=== PATIENT | male | born 1995 | race Caucasian/White ===

== ENCOUNTER → 2017-01-04 | Outpatient (CLI) | payer OTHER ==
[2017-01-04 13:46] LABS: ANION GAP 7 MEQ/L (8-16); BLOOD UREA NITROGEN 20 MG/DL (7-18); CALCIUM LEVEL 8.5 MG/DL (8.5-10.1); CARBON DIOXIDE LEVEL 30 MEQ/L (21-32); CHLORIDE LEVEL 102 MEQ/L (98-107); CREATININE FOR GFR 1.02 MG/DL (0.70-1.30); GLOMERULAR FILTRATION RATE > 60.0 (>60); GLUCOSE, FASTING 76 MG/DL (70-105); POTASSIUM SERUM 4.2 MEQ/L (3.5-5.1); SODIUM LEVEL 139 MEQ/L (136-145)
== END ==
LOC: M LAB 11:27
PROVIDERS: ATTEND Ophthalmology
DX: Z01.818 Encounter for other preprocedural examination (principal)

== ENCOUNTER → 2017-01-09 | Day surgery (SDC) | payer OTHER ==
--- NOTE | 2017-01-08 01:28 | HPE ---
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 This cyst has started getting larger. He is being admitted to have the caruncle cyst removed from the right eye under local anesthetic with sedation. PAST OCULAR HISTORY: Please see history of present illness. PAST MEDICAL HISTORY: Please see the report by Dr. Ramirez Chinchilla, primary care physician at [place]. Negative for significant injury, disease or surgery. MEDICATIONS: Please refer to the report by Dr. Chinchilla. ALLERGIES: No known drug allergies. FAMILY HISTORY: Noncontributory. SOCIAL HISTORY: Nonsmoker. EXAMINATION: Vision without correction: Right eye: 20/20, left eye: 20/20. Intraocular pressure by Goldmann tonometry: Both eyes: 15 mmHg. Pupils: Both eyes: Equal, round, regular and reactive to light, 4 mm. Extraocular eye movements: Both eyes: Full, orthophoric on cover testing. External examination: Right eye: Normal lids, lashes. White/yellow semi mobile cyst on caruncle, 4 mm in size. Vascular. Left eye: Normal lids, lashes, conjunctiva. Slit lamp examination: Cornea: Both eyes: Normal. Anterior chamber: Both eyes: Normal. Iris: Both eyes: Normal. Lens: Both eyes: Normal. Fundal examination through dilated pupils: Discs: Both eyes: Drusen. Macular : Both eyes: Normal. IMPRESSION: 1. Cyst of caruncle, conjunctiva right eye. 2. Optic discs drusen both eyes. PLAN: I discussed the findings with Mr. Ramirez. I recommended excision of the cyst under local anesthetic with sedation. The decision was made to perform this in the operating room as Mr. Ramirez was concerned about surgery near his eye. I discussed the procedure, benefit, expected outcomes, risks and alternatives to surgery. I mentioned that the risk of surgery includes, but is not limited to surgery is not guaranteed, bleeding, infection, inflammation, scarring, recurrence, injury to the globe, extraocular muscles or orbit causing impaired vision or eye movement. Mr. Ramirez elected to have the said surgery performed. I obtained an informed consent. I advised him to stop any aspirin type products and nonsteroidal anti-inflammatory medications 1 week preoperatively. [facility]
[~2017-01-09] VITALS: Ht 170.2 cm; Wt 77.1 kg
[~2017-01-09] MED LIST: BUPIVACAINE 0.75% 10 ML VIAL As Ordered ONE; CIPROFLOXACIN OPHTH 0.3% OINTMENT As Ordered ONE; LIDOCAINE 2% INJ 100 MG/5 ML SDV (FOR ANES.) As Ordered ONE; LIDOCAINE 2% MDV 20 ML VIAL As Ordered ONE; LIDOCAINE W/EPINEPHRINE 1% 20ML VIAL As Ordered ONE; LR 1,000 ML IV ONE; MIDAZOLAM INJ 2 MG/2 ML VIAL (J2250) As Ordered ONE; POVIDONE-IODINE 5% OPHTH PREP SOL 30ML As Ordered ONE; PROPARACAINE 0.5% OPHTH SOL 15ML OD SCH; PROPOFOL 200 MG/20 ML VIAL As Ordered ONE; SODIUM BICARBONATE 8.4% INJ 50MEQ 50 ML VIAL As Ordered ONE; TOBRADEX OPHTH OINT 3.5 GM As Ordered ONE; dexameTHASONE 4 MG/ML 1ML VIAL (J1100) IV ONE; fentaNYL 100 MCG/2 ML INJECTION (J3010) As Ordered ONE
--- NOTE | 2017-01-09 10:35 | RO ---
DATE OF SURGERY: 01/09/2017 ROOM: Operating room. PREOPERATIVE DIAGNOSIS: Epidermal inclusion cyst on the caruncle of the right eye, 4 mm. POSTOPERATIVE DIAGNOSIS: Epidermal inclusion cyst on the caruncle of the right eye, 4 mm. OPERATIVE PROCEDURE: Excision of epidermal inclusion cyst from the caruncle of the right eye. SURGEON: Dr. Dustin Gage [employer] CHIEF: ANESTHETIC: Local and monitored sedation. DESCRIPTION OF PROCEDURE: Operative procedure details: The patient was brought in to the operating room and positioned appropriately. After adequate sedation, 0.1 mL of Xylocaine 2% with epinephrine 1:200,000 was injected into the caruncle region of the right eye. The full face was prepped with Betadine and draped in the usual sterile manner. A wire lid speculum was inserted into the right eye. Sharp and blunt dissection was performed to remove the epidermal inclusion cyst. The incision and the conjunctiva and subconjunctival region was closed with interrupted 6-0 plain suture. Good hemostasis was ensured throughout the procedure using bipolar cautery. There were no complications during the surgery. TobraDex ophthalmic ointment was applied to the incision and sutures in the right eye. The patient left the recovery room in good condition. Specimens were sent to pathology. [facility]
[2017-01-09 11:05] VITALS: BP 110/60
== END | disposition home or self-care (01) ==
LOC: M SDC 08:17
PROVIDERS: ATTEND Ophthalmology
DX: H11.441 Conjunctival cysts, right eye (principal); H47.321 Drusen of optic disc, right eye
CPT/HCPCS: 68110; 88304; J2250; J3010

== ENCOUNTER 2017-05-20 10:30 | Emergency (ER) | payer OTHER ==
[~2017-05-20] VITALS: Ht 170.2 cm; Wt 77.3 kg
[2017-05-20] MEDS ORDERED: NAPROXEN 250 MG TAB PO ONE (11:00)
--- NOTE | 2017-05-20 11:28 | REP ---
Clinical: Pain with recent trauma. Technique: AP, lateral, bilateral oblique and sunrise views of the left knee. Findings: No acute fracture dislocation. Skeletal structures, joint spaces and surrounding soft tissues are relatively normal by radiographic evaluation. Impression: No obvious acute fracture or dislocation. Signed by Josh Pedroza MD 05/20/2017 11:21 A
[2017-05-20] MEDS ORDERED: MOBI4TAB PO (12:07)
[2017-05-20 12:12] VITALS: BP 122/67
== END 2017-05-20 12:21 | disposition home or self-care (01) ==
LOC: M ED 10:30
DX: S83.92XA Sprain of unspecified site of left knee, initial encounter (principal); X50.9XXA Other and unspecified overexertion or strenuous movements or postures, initial encounter; Y92.59 Other trade areas as the place of occurrence of the external cause; Y93.61 Activity, american tackle football; Y99.0 Civilian activity done for income or pay

== ENCOUNTER → 2018-07-20 | Outpatient (CLI) | payer OTHER | LOC: M RAD 07:34 | DX: M25.512 Pain in left shoulder (principal) | CPT/HCPCS: 73200 ==

== ENCOUNTER 2018-07-30 19:59 | Emergency (ER) | payer OTHER ==
[2018-07-30] MEDS: AUGMENTIN 875 MG TAB PO (21:49)
[2018-07-30] MEDS: NORCO, ANEXSIA 5/325MG TABLET (HYDROcodone/ACETAMINOPHEN) PO (21:50)
== END 2018-07-30 21:55 | disposition home or self-care (01) ==
LOC: M ED 19:59
DX: H11.32 Conjunctival hemorrhage, left eye (principal); H72.92 Unspecified perforation of tympanic membrane, left ear
CPT/HCPCS: 70450

== ENCOUNTER 2021-01-11 10:36 | Emergency (ER) | payer OTHER ==
[~2021-01-11] VITALS: Ht 172.7 cm; Wt 79.5 kg
[~2021-01-11 10:36] MED LIST changes: +AUGM875T28 PO; -BUPIVACAINE 0.75% 10 ML VIAL As Ordered ONE; -CIPROFLOXACIN OPHTH 0.3% OINTMENT As Ordered ONE; +IBUP-1022 PO; +IBUPOTC PO; -LIDOCAINE 2% INJ 100 MG/5 ML SDV (FOR ANES.) As Ordered ONE; -LIDOCAINE 2% MDV 20 ML VIAL As Ordered ONE; -LIDOCAINE W/EPINEPHRINE 1% 20ML VIAL As Ordered ONE; -LR 1,000 ML IV ONE; -MIDAZOLAM INJ 2 MG/2 ML VIAL (J2250) As Ordered ONE; +MOBI4TAB PO; -POVIDONE-IODINE 5% OPHTH PREP SOL 30ML As Ordered ONE; -PROPARACAINE 0.5% OPHTH SOL 15ML OD SCH; -PROPOFOL 200 MG/20 ML VIAL As Ordered ONE; -SODIUM BICARBONATE 8.4% INJ 50MEQ 50 ML VIAL As Ordered ONE; -TOBRADEX OPHTH OINT 3.5 GM As Ordered ONE; -dexameTHASONE 4 MG/ML 1ML VIAL (J1100) IV ONE; -fentaNYL 100 MCG/2 ML INJECTION (J3010) As Ordered ONE
[2021-01-11 11:15] VITALS: BP 130/79
[2021-01-11] MEDS ORDERED: KETOROLAC 60MG 2ML VIAL IM ONE (14:10)
--- NOTE | 2021-01-11 14:40 | REP ---
INDICATION: chronic LBP increased this morning when pt bent down COMPARISON: None. TECHNIQUE: AP, lateral, bilateral oblique, and coned-down views of the lumbar spine. FINDINGS: Alignment and lordosis maintained. Vertebral bodies are intact. Disc spaces are relatively normal/age-appropriate. No acute fracture/compression injury or subluxation. No obvious spondylolysis or spondylolisthesis. No significant degenerative changes are appreciated. IMPRESSION: Normal Lumbosacral Spine series. <Electronically signed by Josh Pedroza > 01/11/21 [id number]
[2021-01-11] MEDS ORDERED: diazePAM 10 MG TAB PO ONE (15:00)
[2021-01-11] MEDS ORDERED: CYCL-707 PO (15:22)
[2021-01-11] MEDS ORDERED: MOBI4TAB PO (15:22)
[2021-01-11] MEDS ORDERED: PRED20TA PO (15:22)
== END 2021-01-11 15:52 | disposition home or self-care (01) ==
LOC: M ED 10:36
DX: M54.41 Lumbago with sciatica, right side (principal)
CPT/HCPCS: 72110; 96372; 99282; J1885